=== PATIENT | male | born 1970 | race Caucasian/White ===

== ENCOUNTER 2017-10-01 23:55 | Emergency (ER) | payer OTHER ==
[~2017-10-01] VITALS: Ht 170.2 cm; Wt 79.4 kg
[~2017-10-01 23:55] MED LIST: XARELTO20 M2 PO
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
--- NOTE | 2017-10-02 01:09 | RADIOLOGY REPORT ---
EXAMINATION: XR HAND, LEFT CLINICAL INFORMATION: Crush injury and laceration to left metacarpal region COMPARISON: None TECHNIQUE: PA, lateral, and oblique views of the left hand. FINDINGS: Osseous alignment is anatomic. No acute fracture is seen. No significant focal soft tissue swelling is identified. IMPRESSION: No acute findings identified.
[2017-10-02 01:27] VITALS: BP 128/78
== END 2017-10-02 01:27 ==
LOC: ERH 23:55
DX: S61.412A Laceration without foreign body of left hand, initial encounter (principal); W23.0XXA Caught, crushed, jammed, or pinched between moving objects, initial encounter; Y92.9 Unspecified place or not applicable; Y93.9 Activity, unspecified
CPT/HCPCS: 73130-LT; J2001

== ENCOUNTER 2017-10-12 15:43 | Emergency (ER) | payer OTHER ==
[~2017-10-12] VITALS: Ht 170.2 cm; Wt 79.4 kg
[2017-10-12 15:54] VITALS: BP 160/98
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
== END 2017-10-12 16:18 ==
LOC: ERH 15:43
DX: Z48.02 Encounter for removal of sutures (principal)

== ENCOUNTER 2017-10-27 12:31 | Emergency (ER) | payer OTHER ==
[~2017-10-27] VITALS: Ht 170.2 cm; Wt 79.4 kg
[2017-10-27 14:38] VITALS: BP 168/88
[2017-10-27] MEDS ORDERED: PERCOCET 5-3251 EACH PO (14:40)
[2017-10-27] MEDS ORDERED: CYCLOBENZAPRINE10 M1 PO (14:40)
[2017-10-27] MEDS ORDERED: IBUPROFEN800 M1 PO (14:40)
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
== END 2017-10-27 15:46 ==
LOC: ERH 12:31
DX: S16.1XXA Strain of muscle, fascia and tendon at neck level, initial encounter (principal); V48.9XXA Unspecified car occupant injured in noncollision transport accident in traffic accident, initial encounter; Y92.411 Interstate highway as the place of occurrence of the external cause